=== PATIENT | female | born 1945 | race Caucasian/White ===

== ENCOUNTER 2018-11-09 19:53 | Emergency (ER) | payer MEDICARE, MEDICAID ==
[~2018-11-09] VITALS: Ht 157.5 cm; Wt 72.7 kg
[~2018-11-09 19:53] MED LIST: AMIT10TA6 PO; DIPH25TA51 PO; HC530C TP; IBUP-2077 PO; LEVO88TA4 PO; MIRT30TA2 PO; PROPRANOLOL PO
[2018-11-10 04:36] VITALS: BP 151/90
== END 2018-11-10 05:05 | disposition short-term general hospital (02) ==
LOC: EMS 19:54
DX: S61.511A Laceration without foreign body of right wrist, initial encounter (principal); S61.512A Laceration without foreign body of left wrist, initial encounter; F20.9 Schizophrenia, unspecified; F78 Other intellectual disabilities; Z88.5 Allergy status to narcotic agent; Z88.0 Allergy status to penicillin; Z88.8 Allergy status to other drugs, medicaments and biological substances; Z79.899 Other long term (current) drug therapy; W45.8XXA Other foreign body or object entering through skin, initial encounter; Y93.89 Activity, other specified; Y92.89 Other specified places as the place of occurrence of the external cause; Y99.8 Other external cause status